=== PATIENT | female | born 1955 | race Caucasian/White ===

== ENCOUNTER 2019-09-24 07:59 | Outpatient (CLI) | payer OTHER, SELFPAY ==
--- NOTE | 2019-09-24 08:10 | MM_ITS ---
WS: [id number] DIAGNOSTIC BILATERAL DIGITAL MAMMOGRAM WITH CAD LEFT breast ultrasound, limited HISTORY: LT BREAST LUMP 9 O'CLOCK x2 COMPARISON: 06/11/2013 and 02/28/2012 TECHNIQUE: Bilateral craniocaudad, mediolateral oblique, and mediolateral views are submitted. Spot c ompression LEFT CC Computer aided detection utilized. Breast composition: There are scattered areas of fibroglandular density. 2 triangular markers are caroline beatrice along the 9:00 axis of the LEFT breast. Markers correspond to palpable abnormalities. Mammographi addie there is no underlying abnormality identified. No skin thickening or mass or distortion. No mas ses or suspicious calcifications are noted within either breast. LEFT breast ultrasound, limited. Ultrasound directed to the palpable abnormalities in the medial LEFT breast. Ultrasound directed to the palpable areas along the 9:00 axis. There is no soft tissue mass or distor tion. No skin thickening. MM/[id number] IMPRESSION: BI-RADS: 1-Negative FOLLOW UP: 1 Year Follow-up LACK OF RADIOGRAPHIC EVIDENCE OF MALIGNANCY SHOULD NOT DELAY BIOPSY IF A CLINIC ALLY SUSPICIOUS MASS IS PRESENT.
== END 2019-09-24 08:00 | disposition home or self-care (01) ==
LOC: RADSHAW 08:03
PROVIDERS: Visit Provider Nurse Practitioner Family
DX: N63.20 Unspecified lump in the left breast, unspecified quadrant (principal)
CPT/HCPCS: 76642; 77066

== ENCOUNTER 2020-11-14 09:47 | Outpatient (CLI) | payer OTHER, SELFPAY ==
--- NOTE | 2020-11-14 09:53 | MM_ITS ---
WS: [id number] BILATERAL DIGITAL SCREENING MAMMOGRAM WITH CAD CLINICAL INFORMATION: SCREENING HISTORY: Screening mammogram. No current complaints. COMPARISON: September 24, 2019 TECHNIQUE: Bilateral CC and MLO views. FINDINGS: Fatty-replaced breasts bilaterally. No suspicious focal mass, asymmetry, calcifications, or lead application architect ural distortion. No evidence of malignancy. Benign punctate calcifications. Biopsy marker left breast . MM/[id number] IMPRESSION: BI-RADS: 2-Benign FOLLOW UP: 1 Year Follow-up Recommend return to annual screening mammography.
== END 2020-11-14 09:48 | disposition home or self-care (01) ==
LOC: RADSHAW 09:49
PROVIDERS: PCP Nurse Practitioner Family; Visit Provider Family Medicine
DX: Z12.31 Encounter for screening mammogram for malignant neoplasm of breast (principal)
CPT/HCPCS: 77067

== ENCOUNTER → 2024-07-29 10:30 | Outpatient (BNVA) | payer MEDICARE, SELFPAY | PROVIDERS: PCP Nurse Practitioner Family; Visit Provider Podiatrist Foot & Ankle Surgery | DX: Q82.8 Other specified congenital malformations of skin (principal); R60.9 Edema, unspecified | CPT/HCPCS: 17110; 99203 ==

== ENCOUNTER → 2024-09-02 10:57 | Outpatient (BNVA) | payer MEDICARE, SELFPAY | PROVIDERS: PCP Nurse Practitioner Family; Visit Provider Podiatrist Foot & Ankle Surgery | DX: Q82.8 Other specified congenital malformations of skin (principal); R60.9 Edema, unspecified | CPT/HCPCS: 17110 ==

== ENCOUNTER → 2024-10-06 14:10 | Outpatient (BNVA) | payer MEDICARE, SELFPAY | PROVIDERS: PCP Nurse Practitioner Family; Visit Provider Podiatrist Foot & Ankle Surgery | DX: Q82.8 Other specified congenital malformations of skin (principal); R60.9 Edema, unspecified | CPT/HCPCS: 99213 ==

== ENCOUNTER → 2024-10-27 14:23 | Outpatient (BNVA) | payer MEDICARE, SELFPAY | PROVIDERS: PCP Nurse Practitioner Family; Visit Provider Podiatrist Foot & Ankle Surgery | DX: Q82.8 Other specified congenital malformations of skin (principal); R60.9 Edema, unspecified | CPT/HCPCS: 99213 ==